=== PATIENT | male | born 1985 | race Hispanic/Latino ===

== ENCOUNTER 2021-05-06 20:43 | Inpatient (IN) | payer SELFPAY ==
[~2021-05-06] VITALS: Ht 180.3 cm; Wt 158.8 kg
[2021-05-06] MEDS ORDERED: IBUPROFEN 600 MG TAB PO STA (23:42)
[2021-05-06] MEDS ORDERED: ACETAMINOPHEN 325 MG TAB PO ONE (23:45)
[2021-05-06] MEDS ORDERED: SODIUM CHLORIDE 0.9% 1000ML 1,000 ML IV SCH (23:45)
[2021-05-07] VITALS (8 sets, daily range): BP systolic 139–148; BP diastolic 74–94
[2021-05-07] MEDS ORDERED: CLONIDINE HCL 0.1 MG TAB PO ONE
[2021-05-07] MEDS ORDERED: DEXAMETHASONE SOD PHOS INJ 4 MG/ML VIAL IV ONE
[2021-05-07] MEDS ORDERED: CLONIDINE HCL 0.1 MG TAB ONE ×2 (00:10→01:58)
[2021-05-07] MEDS ORDERED: SODIUM CHLORIDE 0.9% 1000ML 1,000 ML ONE (00:10)
[2021-05-07] MEDS ORDERED: DEXAMETHASONE SOD PHOS INJ 4 MG/ML VIAL ONE (00:10)
[2021-05-07] MEDS ORDERED: IBUPROFEN 600 MG TAB PO STA (01:55)
[2021-05-07] MEDS ORDERED: SODIUM CHLORIDE 0.9% 250ML 250 ML ONE ×2 (01:58→14:35)
[2021-05-07] MEDS ORDERED: CEFTRIAXONE 1 GM VIAL ONE (01:59)
[2021-05-07] MEDS ORDERED: SODIUM CHLORIDE 0.9% 50ML 50 ML ONE (02:01)
[2021-05-07] MEDS: CEFTRIAXONE 1 GM in SODIUM CHLORIDE 0.9% 50ML 50 ML IV SCH ×2 (02:30→23:34)
[2021-05-07] MEDS ORDERED: ACETAMINOPHEN 325 MG TAB PO PRN (04:00)
[2021-05-07] MEDS ORDERED: CHLORASEPTIC SPRAY 177 ML BTL MM PRN (11:45)
[2021-05-07] MEDS ORDERED: DOCUSATE SODIUM 100 MG CAP PO PRN (11:45)
[2021-05-07] MEDS ORDERED: BENZONATATE 100 MG CAP PO PRN (11:45)
[2021-05-07] MEDS ORDERED: ONDANSETRON HCL INJ 2MG/ML 2ML 2 MG/ML VIAL IV PRN (11:45)
[2021-05-07] MEDS ORDERED: LIDOCAINE 4% PATCH TP PRN (11:45)
[2021-05-07] MEDS ORDERED: TRAMADOL HCL 50 MG TAB PO PRN (11:45)
[2021-05-07] MEDS ORDERED: POTASSIUM CHLORIDE 20 MEQ TAB CR PO PRN (11:45)
[2021-05-07] MEDS ORDERED: DIPHENHYDRAMINE HCL 25 MG CAP PO PRN (11:45)
[2021-05-07] MEDS ORDERED: MELATONIN 5 MG TABLET PO PRN (11:45)
[2021-05-07] MEDS ORDERED: HYDRALAZINE HCL 20 MG/ML VIAL IV PRN (11:45)
[2021-05-07] MEDS ORDERED: GUAIFENESIN/CODEINE 10 ML CUP PO PRN (11:45)
[2021-05-07] MEDS ORDERED: DEXTROSE 50% SYRINGE 50 ML IV PRN (11:45)
[2021-05-07] MEDS ORDERED: DEXAMETHASONE SOD PHOS 10 MG/1 ML VIAL IV SCH (12:15)
[2021-05-07] MEDS ORDERED: REMDESIVIR 200MG/NS 100ML 200 MG IV ONE (14:00)
[2021-05-07] MEDS ORDERED: IMDEVIMAB IV ONE (14:30)
[2021-05-07] MEDS ORDERED: SODIUM CHLORIDE IV ONE (14:30)
[2021-05-07] MEDS ORDERED: CASIRIVIMAB IV ONE (14:30)
[2021-05-07] MEDS: ACETAMINOPHEN 325 MG TAB PO PRN (15:51)
[2021-05-07] MEDS: ENOXAPARIN SOD INJ 40 MG/0.4 ML SYR SC SCH (17:55)
[2021-05-08] VITALS (9 sets, daily range): BP systolic 108–168; BP diastolic 71–94
[2021-05-08] MEDS: ACETAMINOPHEN 325 MG TAB PO PRN ×3 (00:09→14:40)
[2021-05-08 06:02] LABS: BASOPHILS # (AUTO) 0.1 (0.0-0.1); BASOPHILS % 0.5 % (0.0-1.0); HEMATOCRIT 46.5 % (38.2-49.6); HEMOGLOBIN 14.5 g/dL (14.0-18.0); LYMPHOCYTES # (AUTO) 1.4 (1.0-3.2); MEAN CORPUSCULAR HEMOGLOBIN 25.6 pg (28-32); MEAN CORPUSCULAR HGB CONC 31.2 g/dL (31-35); MEAN CORPUSCULAR VOLUME 82.2 fL (81-99); MONOCYTES # (AUTO) 0.8 (0.2-0.8); MONOCYTES % 7.4 % (4.4-11.3); NEUTROPHILS # (AUTO) 7.9 (2.1-6.9); NEUTROPHILS % 76.9 % (38.7-80.0); PLATELET COUNT 233 x10e3/uL (140-360); RED BLOOD COUNT 5.66 x10e6/uL (4.3-5.7); RED CELL DISTRIBUTION WIDTH 14.2 % (11.7-14.4)
[2021-05-08 06:27] LABS: ANION GAP 14.7 mmol/L (8-16); CALCIUM 8.3 mg/dL (8.4-10.2); CREATININE, SERUM 0.86 mg/dL (0.72-1.25); POTASSIUM 3.7 mmol/L (3.5-5.1)
[2021-05-08 06:52] LABS: FERRITIN 213.64 ng/mL (21.81-274.66)
[2021-05-08] MEDS: PANTOPRAZOLE SOD 40 MG TABEC PO SCH (09:33)
[2021-05-08] MEDS: ZINC SULFATE 220 MG CAP PO SCH (09:33)
[2021-05-08] MEDS: ASCORBIC ACID 500 MG TAB PO SCH (09:33)
[2021-05-08] MEDS ORDERED: REMDESIVIR 200MG/NS 100ML 200 MG in SODIUM CHLORIDE 0.9% 100 ML 100 ML IV ONE (13:15)
[2021-05-08] MEDS ORDERED: REMDESIVIR 100MG/NS 100ML 100 MG IV SCH (14:00)
[2021-05-08] MEDS: DEXAMETHASONE SOD PHOS 10 MG/1 ML VIAL IV SCH (14:35)
[2021-05-08] MEDS: REMDESIVIR 100MG/NS 100ML 100 MG in SODIUM CHLORIDE 0.9% 100 ML 100 ML IV SCH (14:40)
[2021-05-08] MEDS ORDERED: CEFTRIAXONE 1 GM in SODIUM CHLORIDE 0.9% 50ML 50 ML IV SCH ×3 (15:00)
[2021-05-08] MEDS: ENOXAPARIN SOD INJ 40 MG/0.4 ML SYR SC SCH (18:02)
[2021-05-08] MEDS ORDERED: GUAIFENESIN/CODEINE 5 ML LIQD PO PRN (20:15)
[2021-05-08] MEDS: CEFTRIAXONE 1 GM in SODIUM CHLORIDE 0.9% 50ML 50 ML IV SCH (23:41)
[2021-05-09] VITALS (7 sets, daily range): BP systolic 130–171; BP diastolic 76–92
[2021-05-09 05:11] LABS: BASOPHILS % 0.5 % (0.0-1.0); HEMATOCRIT 48.2 % (38.2-49.6); HEMOGLOBIN 14.8 g/dL (14.0-18.0); LYMPHOCYTES # (AUTO) 1.5 (1.0-3.2); LYMPHOCYTES % 24.9 % (18.0-39.1); MEAN CORPUSCULAR HEMOGLOBIN 25.6 pg (28-32); MEAN CORPUSCULAR HGB CONC 30.7 g/dL (31-35); MEAN CORPUSCULAR VOLUME 83.5 fL (81-99); MONOCYTES # (AUTO) 0.8 (0.2-0.8); MONOCYTES % 12.9 % (4.4-11.3); NEUTROPHILS # (AUTO) 3.6 (2.1-6.9); PLATELET COUNT 161 x10e3/uL (140-360); RED BLOOD COUNT 5.77 x10e6/uL (4.3-5.7); RED CELL DISTRIBUTION WIDTH 14.2 % (11.7-14.4)
[2021-05-09 05:33] LABS: ANION GAP 15.3 mmol/L (8-16); CALCIUM 8.3 mg/dL (8.4-10.2); CREATININE, SERUM 0.75 mg/dL (0.72-1.25); POTASSIUM 4.3 mmol/L (3.5-5.1)
[2021-05-09 05:55] LABS: FERRITIN 280.8 ng/mL (21.81-274.66)
[2021-05-09] MEDS: ZINC SULFATE 220 MG CAP PO SCH (09:41)
[2021-05-09] MEDS: PANTOPRAZOLE SOD 40 MG TABEC PO SCH (09:41)
[2021-05-09] MEDS: ASCORBIC ACID 500 MG TAB PO SCH (09:41)
[2021-05-09] MEDS: DEXAMETHASONE SOD PHOS 10 MG/1 ML VIAL IV SCH (09:41)
[2021-05-09] MEDS ORDERED: REMDESIVIR 100MG/NS 100ML 100 MG in SODIUM CHLORIDE 0.9% 100 ML 100 ML IV SCH ×4 (14:00)
[2021-05-09] MEDS: ENOXAPARIN SOD INJ 40 MG/0.4 ML SYR SC SCH (17:58)
[2021-05-09] MEDS: REMDESIVIR 100MG/NS 100ML 100 MG in SODIUM CHLORIDE 0.9% 100 ML 100 ML IV SCH (18:05)
[2021-05-09] MEDS: CEFTRIAXONE 1 GM in SODIUM CHLORIDE 0.9% 50ML 50 ML IV SCH (23:23)
[2021-05-10] VITALS: BP 150/83
[2021-05-10 04:00] VITALS: BP 151/96
[2021-05-10 08:01] VITALS: BP 150/73
[2021-05-10] MEDS: ASCORBIC ACID 500 MG TAB PO SCH (08:50)
[2021-05-10] MEDS: PANTOPRAZOLE SOD 40 MG TABEC PO SCH (08:50)
[2021-05-10] MEDS: DEXAMETHASONE SOD PHOS 10 MG/1 ML VIAL IV SCH (08:50)
[2021-05-10] MEDS: ZINC SULFATE 220 MG CAP PO SCH (08:50)
[2021-05-10 09:00] VITALS: BP 150/73
[2021-05-10 11:42] VITALS: BP 137/69
[2021-05-10] MEDS: REMDESIVIR 100MG/NS 100ML 100 MG in SODIUM CHLORIDE 0.9% 100 ML 100 ML IV SCH (13:48)
[2021-05-10] MEDS ORDERED: DEXAMETHASONE4 MG PO (15:01)
[2021-05-10] MEDS ORDERED: AUGMENTIN 875-1 EACH PO (15:03)
[2021-05-10] MEDS ORDERED: TESSALON PERLE100 MG PO (15:04)
[2021-05-10 15:39] VITALS: BP 161/81
== END 2021-05-10 18:36 | disposition home or self-care (01) | DRG 871 ==
LOC: FSED 23:45 → ERHOLD 05-07 01:51 → IMCU 05-07 03:55 → OBSVTOIN 05-07 15:00
PROVIDERS: ADMIT Internal Medicine; ATTEND Internal Medicine
PROC: 8E0ZXY6 Isolation (ICD-10-PCS; principal; 2021-05-07)
PROC: XW033E5 Introduction of Remdesivir Anti-infective into Peripheral Vein, Percutaneous Approach, New Technology Group 5 (ICD-10-PCS; 2021-05-08)
DX: A41.89 Other specified sepsis (principal); U07.1 COVID-19; J12.82 Pneumonia due to coronavirus disease 2019; J96.01 Acute respiratory failure with hypoxia; Z68.42 Body mass index [BMI] 45.0-49.9, adult; E11.65 Type 2 diabetes mellitus with hyperglycemia; I10 Essential (primary) hypertension; E66.01 Morbid (severe) obesity due to excess calories
CPT/HCPCS: 36415; 71046; 80048; 80053; 82728; 82948; 83605; 85025; 86140; 87040; 99284; J0456; J0696; J1100; J1650; J7030; J7050; U0002